=== PATIENT | female | born 1955 | race Caucasian/White ===

== ENCOUNTER 2016-06-24 11:45 | Day surgery (SDC) | payer OTHER ==
[2016-06-24] MEDS ORDERED: TRIAMCINOLONE ACETONIDE 40 MG/ML SUS ONE (12:31)
[2016-06-24] MEDS ORDERED: BUPIVACAINE HCL 0.5% MPF 10 ML SOL ONE (12:32)
[2016-06-24 13:09] VITALS: BP 126/76; PULSE 67; RESP 20; TEMP 97.5; O2SAT 96
== END 2016-06-24 13:20 | disposition home or self-care (01) | DRG 552 ==
LOC: SURG 11:45
PROVIDERS: ATTEND Nurse Anesthetist, Certified Registered
DX: M46.1 Sacroiliitis, not elsewhere classified (principal)
CPT/HCPCS: J3300

== ENCOUNTER 2016-12-09 11:43 | Day surgery (SDC) | payer OTHER ==
[2016-12-09] MEDS ORDERED: BUPIVACAINE HCL 0.5% MPF 10 ML SOL ONE (13:22)
[2016-12-09] MEDS: TRIAMCINOLONE ACETONIDE 40 MG/ML SUS ONE ×2 (13:27→13:37)
[2016-12-09 13:54] VITALS: BP 128/79; PULSE 57; RESP 20; TEMP 97.4; O2SAT 94
== END 2016-12-09 14:00 | disposition home or self-care (01) | DRG 552 ==
LOC: SURG 11:43
PROVIDERS: ATTEND Nurse Anesthetist, Certified Registered
DX: M46.1 Sacroiliitis, not elsewhere classified (principal)
CPT/HCPCS: J3300

== ENCOUNTER 2017-04-13 12:32 | Day surgery (SDC) | payer OTHER ==
[2017-04-13 12:54] VITALS: RESP 16
[2017-04-13] MEDS ORDERED: BUPIVACAINE HCL 0.25% MPF 10 ML SOL INFIL ONE ×2 (13:27→13:34)
[2017-04-13] MEDS: TRIAMCINOLONE ACETONIDE 40 MG/ML SUS ONE ×2 (13:36→13:40)
[2017-04-13 14:03] VITALS: BP 129/75; PULSE 67; TEMP 97.8; O2SAT 96
== END 2017-04-13 14:11 | disposition home or self-care (01) | DRG 554 ==
LOC: SURG 12:32
PROVIDERS: ATTEND Nurse Anesthetist, Certified Registered
DX: M12.9 Arthropathy, unspecified (principal)
CPT/HCPCS: J3300